=== PATIENT | female | born 1950 | race Caucasian/White ===

== ENCOUNTER 2024-07-08 12:29 | Emergency (ER) | payer MEDICARE, MEDICAID ==
[2024-07-08] VITALS (10 sets, daily range): BP systolic 93–118; BP diastolic 51–93
[~2024-07-08] VITALS: Ht 162.6 cm; Wt 68.0 kg
[2024-07-08 13:07] LABS: BASO% 0.8 % (0-3); EOS% 3.4 % (0-8); HEMATOCRIT 37.3 % (39.0-50.0); HEMOGLOBIN 11.8 g/dl (14.0-18.0); IMMATURE GRANULOCYTES 0.2 % (0.0-5.0); LYMPH% 32.7 % (15-41); MEAN CELL VOLUME 93.7 fL CALC (80.0-100.0); MEAN CORPUSCULAR HGB 29.6 pG CALC (26.0-32.0); MEAN CORPUSCULAR HGB CONC 31.6 g/dL CAL (32.0-36.0); MONO% 8.5 % (2-13); NEUT# 5.75 thou/uL (1.82-7.42); NEUT% 54.4 % (42-76); RED BLOOD COUNT 3.98 mill/uL (4.70-6.10); RED CELL DISTRI WIDTH 13.1 % (11.5-15.5)
[2024-07-08 13:22] LABS: ALBUMIN 4.2 g/dL (3.2-5.0); BILIRUBIN, TOTAL 0.6 mg/dL (0.2-1.3); CREATININE 0.9 mg/dL (0.7-1.3); MAGNESIUM 2.2 mg/dL (1.6-2.3); POTASSIUM 4.6 mmol/l (3.5-5.1); TOTAL PROTEIN 7.1 g/dL (6.3-8.2)
[2024-07-08 13:46] LABS: URINE BILIRUBIN - DIPSTICK Negative (NEGATIVE); URINE BLOOD DIPSTICK Negative (NEGATIVE); URINE GLUCOSE - DIPSTICK Negative (NEGATIVE); URINE KETONE Trace mg/dL (NEGATIVE); URINE LEUK ESTERASE Negative (NEGATIVE); URINE PROTEIN - DIPSTICK Negative (NEG-TRACE)
[2024-07-08 13:48] LABS: URINE COLOR Yellow; URINE NITRITE - DIPSTICK Positive (Negative)
[2024-07-08 13:57] LABS: URINE BACTERIA MODERATE hpf; URINE RBC 0-2 RBC/hpf (0-5)
[2024-07-08 13:58] LABS: URINE MUCUS MODERATE hpf (NONE-FEW); URINE SQUAMOUS EPITHELIAL CELL FEW EPI/hpf (0-FEW)
[2024-07-08 13:59] LABS: URINE HYALINE CAST MODERATE lpf (NONE-RARE)
[2024-07-08] MEDS ORDERED: KEFLEX500 MG PO ×2 (14:37→14:46)
[2024-07-08] MEDS ORDERED: SODIUM CHLORIDE 0.9% 1,000 ML IV ONE (14:45)
[2024-07-08] MEDS ORDERED: MIRALAX17 GM PO (14:46)
== END 2024-07-08 16:19 | disposition home or self-care (01) ==
LOC: ED 12:29 → EDSEX 12:29 → ED 14:00
PROVIDERS: Nurse Practitioner
DX: N39.0 Urinary tract infection, site not specified (principal); R42 Dizziness and giddiness; I10 Essential (primary) hypertension; E78.00 Pure hypercholesterolemia, unspecified

== ENCOUNTER 2024-08-06 13:14 | Inpatient (IN) | payer MEDICARE, MEDICAID ==
[2024-08-06] VITALS (12 sets, daily range): BP systolic 100–143; BP diastolic 56–82
[~2024-08-06] VITALS: Ht 162.6 cm; Wt 68.0 kg
[~2024-08-06 13:14] MED LIST: KEFLEX500 MG PO; MIRALAX17 GM PO
[2024-08-06] MEDS ORDERED: SODIUM CHLORIDE 0.9% 1,000 ML IV STA (14:22)
[2024-08-06] MEDS ORDERED: DIATRIZOATE MEGLUMINE & SODIUM 120 ML/BTL BTL PO ONE (14:25)
[2024-08-06 14:39] LABS: URINE BILIRUBIN - DIPSTICK Negative (NEGATIVE); URINE GLUCOSE - DIPSTICK Negative (NEGATIVE); URINE KETONE Negative (NEGATIVE); URINE LEUK ESTERASE Negative (NEGATIVE); URINE PH 5.5 (4.5-8.0); URINE PROTEIN - DIPSTICK Negative (NEG-TRACE); URINE UROBILINOGEN - DIPSTICK 0.2 E.U./dL (0.2)
[2024-08-06 14:42] LABS: BASO% 0.9 % (0-3); EOS% 1.7 % (0-8); HEMATOCRIT 36.3 % (37.0-47.0); HEMOGLOBIN 11.7 g/dl (12.0-16.0); IMMATURE GRANULOCYTES 0.1 % (0.0-5.0); LYMPH% 33.9 % (15-41); MEAN CELL VOLUME 93.1 fL CALC (80.0-100.0); MEAN CORPUSCULAR HGB CONC 32.2 g/dL CAL (32.0-36.0); MONO% 9.3 % (2-13); NEUT# 5.56 thou/uL (2.00-7.15); NEUT% 54.1 % (42-76); RED BLOOD COUNT 3.9 mill/uL (4.20-5.60); RED CELL DISTRI WIDTH 13.2 % (11.5-15.5)
[2024-08-06 14:52] LABS: URINE COLOR Yellow; URINE NITRITE - DIPSTICK Positive (Negative)
[2024-08-06 14:53] LABS: ALBUMIN 4.4 g/dL (3.2-5.0); BILIRUBIN, TOTAL 0.6 mg/dL (0.02-1.3); CREATININE 0.8 mg/dL (0.5-1.0); POTASSIUM 4.8 mmol/l (3.5-5.1); TOTAL PROTEIN 7.1 g/dL (6.3-8.2)
[2024-08-06] MEDS ORDERED: ISOVUE-300 (Iopamidol) 100 ML SDV IV PRN (14:55)
[2024-08-06] MEDS ORDERED: Barium Sulfate (Readi-Cat 2 Berry) 450 ML/BTL PO PRN (14:55)
[2024-08-06] MEDS ORDERED: DIATRIZOATE MEGLUMINE & SODIUM 30 ML/BTL PO PRN (14:55)
[2024-08-06] MEDS ORDERED: Barium Sulfate (Readi-Cat 2 Banana) 450 ML/BTL PO PRN (14:55)
[2024-08-06 15:00] LABS: URINE BACTERIA FEW hpf; URINE BLOOD DIPSTICK Negative (NEGATIVE); URINE EPITHELIAL CELLS RARE EPI/hpf (0-FEW); URINE RBC 0-2 RBC/hpf (0-5)
[2024-08-06] MEDS ORDERED: DIATRIZOATE MEGLUMINE & SODIUM 30 ML/BTL PO ONE (15:10)
[2024-08-06] MEDS ORDERED: Peg 3350-POTASSIUM CHLORIDE-So 4,000 ML BTL PO ONE (19:15)
[2024-08-06] MEDS ORDERED: SYMBICORT 80-4.5MCG PO (19:38)
[2024-08-06] MEDS ORDERED: TIZANIDINE4 MG PO (19:39)
[2024-08-06] MEDS ORDERED: ROSUVASTATIN CAL5 MG PO (19:39)
[2024-08-06] MEDS ORDERED: BUSPAR10 M1 PO (19:40)
[2024-08-06] MEDS ORDERED: LISINOPRIL30 MG PO (19:40)
[2024-08-06] MEDS ORDERED: ESCITALOPRAM OX20 MG PO (19:40)
[2024-08-06] MEDS ORDERED: QUETIAPINE FUM150 MG PO (19:41)
[2024-08-06] MEDS ORDERED: MONTELUKAST SOD10 MG PO (19:41)
[2024-08-06] MEDS ORDERED: SODIUM CHLORIDE 0.9% 1,000 ML IV PRN (20:40)
[2024-08-06] MEDS ORDERED: busPIRone HCL 5 MG/TAB PO SCH (22:24)
[2024-08-06] MEDS ORDERED: MAGNESIUM HYDROXIDE 30 ML UDC PO PRN (22:25)
[2024-08-06] MEDS ORDERED: Polyethylene Glycol 3350 17 GM/PKT PO PRN (22:25)
[2024-08-06] MEDS ORDERED: ACETAMINOPHEN 325 MG/TAB PO PRN (22:25)
[2024-08-07 04:00] VITALS: BP 143/79
[2024-08-07 04:12] VITALS: BP 143/79
[2024-08-07 07:29] VITALS: BP 116/66
[2024-08-07 08:29] LABS: ALBUMIN 4.2 g/dL (3.2-5.0); BILIRUBIN, TOTAL 0.6 mg/dL (0.02-1.3); CREATININE 0.7 mg/dL (0.5-1.0); MAGNESIUM 2.1 mg/dL (1.6-2.3); POTASSIUM 4.5 mmol/l (3.5-5.1); TOTAL PROTEIN 6.8 g/dL (6.3-8.2)
[2024-08-07 08:31] LABS: BASO% 0.8 % (0-3); EOS% 2.8 % (0-8); HEMATOCRIT 38.2 % (37.0-47.0); HEMOGLOBIN 12.2 g/dl (12.0-16.0); IMMATURE GRANULOCYTES 0.2 % (0.0-5.0); LYMPH% 29.4 % (15-41); MEAN CELL VOLUME 94.1 fL CALC (80.0-100.0); MEAN CORPUSCULAR HGB CONC 31.9 g/dL CAL (32.0-36.0); MONO% 9.1 % (2-13); NEUT% 57.7 % (42-76); RED BLOOD COUNT 4.06 mill/uL (4.20-5.60); RED CELL DISTRI WIDTH 13.2 % (11.5-15.5)
[2024-08-07] MEDS ORDERED: ESCITALOPRAM 10 MG/TAB PO SCH (09:00)
[2024-08-07] MEDS ORDERED: LISINOPRIL 10 MG/TAB PO SCH (09:00)
[2024-08-07] MEDS ORDERED: IBUPROFEN 600 MG/TAB PO PRN (11:30)
[2024-08-07] MEDS ORDERED: DOCUSATE SODIUM 100 MG/CAP PO SCH (12:00)
[2024-08-07 15:44] VITALS: BP 116/60
[2024-08-07 18:29] VITALS: BP 125/69
[2024-08-07 18:30] VITALS: BP 125/69
[2024-08-07] MEDS ORDERED: QUEtiapine FUMERATE 100 MG/TAB PO SCH (21:00)
[2024-08-07] MEDS ORDERED: ENOXAPARIN SODIUM 40 MG/0.4 ML SYR SC SCH (21:00)
[2024-08-08 04:00] VITALS: BP 125/63
[2024-08-08 04:40] VITALS: BP 125/63
[2024-08-08 05:14] LABS: BASO% 0.8 % (0-3); EOS% 4.2 % (0-8); HEMOGLOBIN 10.3 g/dl (12.0-16.0); IMMATURE GRANULOCYTES 0.1 % (0.0-5.0); MEAN CELL VOLUME 94.6 fL CALC (80.0-100.0); MEAN CORPUSCULAR HGB 30.7 pG CALC (26.0-32.0); MEAN CORPUSCULAR HGB CONC 32.5 g/dL CAL (32.0-36.0); MONO% 9.8 % (2-13); NEUT# 2.74 thou/uL (2.00-7.15); NEUT% 35.1 % (42-76); RED BLOOD COUNT 3.35 mill/uL (4.20-5.60)
[2024-08-08 05:24] LABS: HEMATOCRIT 31.7 % (37.0-47.0)
[2024-08-08 05:25] LABS: BILIRUBIN, TOTAL 0.5 mg/dL (0.02-1.3); CREATININE 0.7 mg/dL (0.5-1.0); MAGNESIUM 1.9 mg/dL (1.6-2.3); POTASSIUM 4.1 mmol/l (3.5-5.1)
[2024-08-08 05:39] LABS: TOTAL PROTEIN 5.4 g/dL (6.3-8.2)
[2024-08-08 07:50] VITALS: BP 137/73
[2024-08-08 08:28] VITALS: BP 137/73
[2024-08-08] MEDS ORDERED: DOCUSATE SODIU100 MG PO (09:52)
[2024-08-08] MEDS ORDERED: BACTRIM DS1 TAB PO (09:52)
== END 2024-08-08 13:50 | disposition home or self-care (01) | DRG 389 ==
LOC: ED 13:14 → MS2 19:13
PROVIDERS: Nurse Practitioner; Nurse Practitioner Family; ADMIT Internal Medicine; ATTEND Internal Medicine
DX: K56.7 Ileus, unspecified (principal); N39.0 Urinary tract infection, site not specified; B96.20 Unspecified Escherichia coli [E. coli] as the cause of diseases classified elsewhere; K80.20 Calculus of gallbladder without cholecystitis without obstruction; I10 Essential (primary) hypertension; E78.00 Pure hypercholesterolemia, unspecified; J44.9 Chronic obstructive pulmonary disease, unspecified; F41.9 Anxiety disorder, unspecified
CPT/HCPCS: J0696; J1650; Q9967

== ENCOUNTER 2024-08-15 09:18 | Observation (INO) | payer MEDICARE, MEDICAID ==
[~2024-08-15] VITALS: Ht 162.6 cm; Wt 79.5 kg
[2024-08-15] VITALS (9 sets, daily range): BP systolic 95–126; BP diastolic 41–65
[~2024-08-15 09:18] MED LIST changes: +BACTRIM DS1 TAB PO; +BUSPAR10 M1 PO; +DOCUSATE SODIU100 MG PO; +ESCITALOPRAM OX20 MG PO; +LISINOPRIL30 MG PO; +MONTELUKAST SOD10 MG PO; +QUETIAPINE FUM150 MG PO; +ROSUVASTATIN CAL5 MG PO; +SYMBICORT 80-4.5MCG PO; +TIZANIDINE4 MG PO
--- NOTE | 2024-08-15 09:20 | NUR ---
PT BROUGHT BACK TO ER ROOM 9 VIA WHEELCHAIR
[2024-08-15] MEDS ORDERED: KETOROLAC TROMETHAMINE 15 MG/ML SDV IV ONE (10:00)
[2024-08-15 10:15] LABS: URINE BLOOD DIPSTICK Negative (NEGATIVE); URINE COLOR Yellow; URINE GLUCOSE - DIPSTICK Negative (NEGATIVE); URINE KETONE Negative (NEGATIVE); URINE LEUK ESTERASE Negative (NEGATIVE); URINE NITRITE - DIPSTICK Negative (Negative); URINE PROTEIN - DIPSTICK Trace mg/dL (NEG-TRACE); URINE UROBILINOGEN - DIPSTICK 0.2 E.U./dL (0.2)
[2024-08-15 10:15] LABS: BASO% 0.3 % (0-3); EOS% 0.2 % (0-8); IMMATURE GRANULOCYTES 0.2 % (0.0-5.0); LYMPH% 11.5 % (15-41); MEAN CELL VOLUME 90.8 fL CALC (80.0-100.0); MEAN CORPUSCULAR HGB 29.8 pG CALC (26.0-32.0); MEAN CORPUSCULAR HGB CONC 32.8 g/dL CAL (32.0-36.0); MONO% 8.3 % (2-13); NEUT# 7.01 thou/uL (2.00-7.15); NEUT% 79.5 % (42-76); RED BLOOD COUNT 4.26 mill/uL (4.20-5.60); RED CELL DISTRI WIDTH 13.2 % (11.5-15.5)
[2024-08-15 10:21] LABS: HEMATOCRIT 38.7 % (37.0-47.0); HEMOGLOBIN 12.7 g/dl (12.0-16.0)
[2024-08-15 10:31] LABS: BILIRUBIN, TOTAL 0.5 mg/dL (0.02-1.3); CREATININE 0.9 mg/dL (0.5-1.0); POTASSIUM 4.9 mmol/l (3.5-5.1)
[2024-08-15 10:33] LABS: ALBUMIN 4.2 g/dL (3.2-5.0); TOTAL PROTEIN 7.1 g/dL (6.3-8.2)
[2024-08-15] MEDS ORDERED: ePHEDrine SULFATE 50 MG/ML AMP IV ONE (11:29)
[2024-08-15] MEDS ORDERED: ONDANSETRON HCl 4 MG/2 ML SDV IV ONE (11:29)
[2024-08-15] MEDS ORDERED: PROPOFOL 200 MG/20 ML VIAL IV ONE (11:29)
[2024-08-15] MEDS ORDERED: LIDOCAINE HCL 2% 2ML SDV IV ONE (11:29)
[2024-08-15] MEDS ORDERED: ROCURONIUM BROMIDE 10 MG/ML 5ML VIAL IV ONE (11:29)
[2024-08-15] MEDS ORDERED: SUGAMMADEX SODIUM 200 MG/2 ML SDV IV ONE (11:29)
[2024-08-15] MEDS ORDERED: SUCCINYLCHOLINE CHLORIDE 20 MG/ML 10ML VIAL IV ONE (11:29)
[2024-08-15] MEDS ORDERED: cefTRIAXone SODIUM 2 GM in SODIUM CHLORIDE 0.9% 100 ML IV ONE (11:35)
[2024-08-15] MEDS ORDERED: AZITHROMYCIN 500 MG in SODIUM CHLORIDE 0.9% 500 ML IV ONE (11:35)
[2024-08-15] MEDS ORDERED: PIPERACILLIN Sodium-Tazobactam 3.375 GM in SODIUM CHLORIDE 0.9% 100 ML IV ONE (11:35)
[2024-08-15] MEDS ORDERED: SODIUM CHLORIDE 0.9% 500 ML IV ONE (12:03)
[2024-08-15] MEDS ORDERED: SODIUM CHLORIDE 1,000 ML BTL IR ONE (12:09)
[2024-08-15] MEDS ORDERED: STERILE WATER FOR IRRIGATION 1,000 ML BTL IR ONE (12:09)
[2024-08-15] MEDS ORDERED: LIDOcaine HCl 1% (Local Anesth.) 20 ML VIAL ONE (12:09)
--- NOTE | 2024-08-15 12:20 | NUR ---
Dr. Mcnair at patient's bedside to discuss plan of care.
--- NOTE | 2024-08-15 12:31 | NUR ---
zosyn and Rocephin IV infusing. Azithromycin ordered but not initiated as patient has peripheral IV sites x2. Handoff administered to Simona, WEB APPLICATIONS ADMINISTRATOR. Patient transported to OR via stretcher.
[2024-08-15] MEDS ORDERED: FAMOTIDINE 10MG/ML 2ML SDV IV ONE (12:47)
[2024-08-15] MEDS ORDERED: LACTATED RINGER'S 1,000 ML IV ONE ×2 (13:09→14:25)
[2024-08-15] MEDS ORDERED: SIMETHICONE 20 MG/0.3 ML PO PRN (13:55)
[2024-08-15] MEDS ORDERED: oxyCODONE 5MG/ ACETAMINOPHEN 325MG TAB PO PRN (13:55)
[2024-08-15] MEDS ORDERED: SODIUM CHLORIDE 0.9% 1,000 ML IV PRN (13:55)
[2024-08-15] MEDS ORDERED: HYDROmorphone HCL 2 MG/AMP IV PRN (13:55)
[2024-08-15] MEDS ORDERED: ONDANSETRON HCl 4 MG/2 ML SDV IV PRN (13:55)
[2024-08-15] MEDS ORDERED: ACETAMINOPHEN 100 ML IV ONE (14:16)
[2024-08-15] MEDS ORDERED: ALBUTEROL SULFATE 2.5 MG VIAL ONE (14:16)
[2024-08-15] MEDS ORDERED: PROMETHAZINE HCL 12.5 MG in SODIUM CHLORIDE 0.9% 50 ML IV PRN (14:45)
[2024-08-15] MEDS ORDERED: busPIRone HCL 5 MG/TAB PO SCH (15:00)
[2024-08-15] MEDS ORDERED: (None)1 % OP (15:34)
[2024-08-15] MEDS ORDERED: AIMOVIG140 MG/ML (15:35)
--- NOTE | 2024-08-15 16:42 | NUR ---
Pt consented to receive pneumococcal vaccination, however [facility] record shows administration of PCV20 in October 2021. Re-vaccination not recommended. No order entered.
[2024-08-15] MEDS ORDERED: KETOROLAC TROMETHAMINE 15 MG/ML SDV IV SCH (18:00)
[2024-08-15] MEDS ORDERED: PIPERACILLIN Sodium-Tazobactam 3.375 GM in SODIUM CHLORIDE 0.9% 100 ML IV SCH (18:00)
--- NOTE | 2024-08-15 19:35 | NUR ---
PATIENT OBSERVED TO BE RESTING IN BED WATCHING TV. PATIENT CAN MAKE THINGS KNOWN, NONE NEEDED AT THIS TIME. O2 VIA NC AT 2L, WITH EQUAL UNLABORED RESP, NO VISUAL SIGNS OF DISTRESS. ABDOMEN OBSERVED TO HAVE 4 INCISION SITES, INTACT NO DRAINAGE. BED AT LOWEST POSITION. CALL LIGHT WITH IN REACH.
[2024-08-15] MEDS ORDERED: MAGNESIUM CITRATE 296 ML/BTL PO SCH (21:00)
--- NOTE | 2024-08-16 01:30 | NUR ---
PATIENT OBSERVED TO BE RESTING IN BED AWAKE. PATIENT CAN MAKE NEEDS KNOWN NONE NEEDED AT THIS TIME. UNLABORED RESP WITH O2 VIA NC AT 3L. BED AT LOWEST POSITION. CALL LIGHT WITH IN REACH.
[2024-08-16 04:00] VITALS: BP 115/62
--- NOTE | 2024-08-16 04:20 | NUR ---
PATIENT OBSERVED TO BE RESTING IN BED WITH EYES CLOSED. O2 VIA NC AT 3L. UNLABORED RESP. NO VISUAL SIGNS OF DISTRESS. BED AT LOWEST POSITION. CALL LIGHT WITH IN REACH.
[2024-08-16 05:03] LABS: BASO% 0.3 % (0-3); EOS% 0.2 % (0-8); HEMATOCRIT 33.3 % (37.0-47.0); HEMOGLOBIN 10.8 g/dl (12.0-16.0); IMMATURE GRANULOCYTES 0.2 % (0.0-5.0); LYMPH% 14.7 % (15-41); MEAN CELL VOLUME 92.2 fL CALC (80.0-100.0); MEAN CORPUSCULAR HGB 29.9 pG CALC (26.0-32.0); MEAN CORPUSCULAR HGB CONC 32.4 g/dL CAL (32.0-36.0); MONO% 10.1 % (2-13); NEUT# 6.83 thou/uL (2.00-7.15); NEUT% 74.5 % (42-76); RED BLOOD COUNT 3.61 mill/uL (4.20-5.60); RED CELL DISTRI WIDTH 13.5 % (11.5-15.5)
[2024-08-16 05:15] LABS: BILIRUBIN, TOTAL 0.4 mg/dL (0.02-1.3); CREATININE 0.8 mg/dL (0.5-1.0); POTASSIUM 4.9 mmol/l (3.5-5.1); TOTAL PROTEIN 5.9 g/dL (6.3-8.2)
[2024-08-16 05:17] LABS: ALBUMIN 3.3 g/dL (3.2-5.0)
[2024-08-16 07:02] VITALS: BP 99/73
[2024-08-16] MEDS ORDERED: ESCITALOPRAM 10 MG/TAB PO SCH (09:00)
[2024-08-16] MEDS ORDERED: LISINOPRIL 10 MG/TAB PO SCH (09:00)
[2024-08-16] MEDS ORDERED: QUEtiapine FUMERATE 100 MG/TAB PO SCH (09:00)
[2024-08-16] MEDS ORDERED: MONTELUKAST SODIUM 10 MG/TAB PO SCH (09:00)
[2024-08-16] MEDS ORDERED: INFLUENZA VIRUS VACCINE FLUZONE HD 2024/25 0.5 ML INJ IM SCH (09:00)
[2024-08-16 11:10] VITALS: BP 119/69
[2024-08-16] MEDS ORDERED: SUMAtriptan SUCCINATE 25 MG TAB PO PRN (11:15)
[2024-08-16 15:38] VITALS: BP 96/51
[2024-08-16 18:30] VITALS: BP 102/61
[2024-08-16 18:56] VITALS: BP 102/61
--- NOTE | 2024-08-16 19:44 | NUR ---
PATIENT OBSERVED TO BE RESTING IN BED WATCHING TV. PATIENT CAN MAKE NEEDS KNOWN, NONE NEEDED AT THIS TIME. BED SIDE ASSESSMENT COMPLETE. O2 VIA NC AT 2L WITH EQUAL UNLABORED RESP. NO VISUAL SIGNS OF DISTRESS. NORMAL S1&S2. ABDOMEN OBSERVED TO BE SOFT AND DISTENDED. MIDLINE INCISION OBSERVED TO LOWER ABDOMEN. BED AT LOWEST POSITION. CALL LIGHT WITH IN REACH.
[2024-08-17] VITALS (9 sets, daily range): BP systolic 87–138; BP diastolic 38–80
--- NOTE | 2024-08-17 00:40 | NUR ---
PATIENT IN BED RESTING IN BED AWAKE. O2 VIA NC AT 3L. UNLABORED RESP. NO VISUAL SIGNS OF DISTRESS. PATIENT STATED SHE HAS A HEADACHE. WILL REFER TO EMAR. BED AT LOWEST POSITION. CALL LIGHT WITH IN REACH.
--- NOTE | 2024-08-17 04:56 | NUR ---
PATIENT IN BED RESTING WITH EYES CLOSED. O2 VIA NC AT 2L, UNLABORED RESP NO VISUAL SIGNS OF DISTRESS. BED AT LOWEST POSITION. CALL LIGHT WITH IN REACH.
--- NOTE | 2024-08-17 07:15 | NUR ---
REPORT RECEIVED FROM VALERIO. PT CHECKED AND RESTING IN BED C/O H/A. WILL MONITOR. IV PATENT AND TELE CHECKED SR/ST 98-104. WILL MONITOR. CALL LIGHT IN REACH.
[2024-08-17] MEDS ORDERED: PERCOCET 5/325M1 TAB PO (09:40)
[2024-08-17] MEDS ORDERED: AMOX/K CLAV875 M1 PO (09:41)
--- NOTE | 2024-08-17 11:00 | NUR ---
PT SITTING UP IN BEDSIDE RECLINER AWAITING DISCHARGE HOME. DR. FAULKNER AT BEDSIDE EARLIER TO ASSESS AND NOTIFIED OF LOWER MID ABD INCISION WITH DRAINAGE AND SMALL OPENING. HE REMOVED STERI STRIPS AND ASSESSED AND OKAY FOR DISCHARGE, HOWEVER, PT BP 90/[address] 102-[address] FAULKNER NOTIFIED AND MEDICAL MD DR AL WAS CONSULTED 08/15 BUT HAD NOT SEEN PATIENT YET. DR. LADD AVAILABLE TODAY AND INFORMED OF ASSESSMENT FINDINGS. PT DENIES SOB/DYSPNEA, HOWEVER ALSO FAILED WALKING TEST PER RT WITH PO2 DROPPING TO 87-88 % ON R/A. CASE MANAGEMENT AWARE AND ORDERING HOME HEALTH AND HOME O2. MEANWHILE LR STARTED TO GIVE PT BOLUS DOSE AND STAT LABS ORDERED. PT UPDATED ON POC AND AWARE OF TESTS NEEDED TO OK DISCHARGE HOME.
[2024-08-17 11:30] LABS: HEMATOCRIT 34.8 % (37.0-47.0); HEMOGLOBIN 11.3 g/dl (12.0-16.0); MEAN CELL VOLUME 91.6 fL CALC (80.0-100.0); MEAN CORPUSCULAR HGB 29.7 pG CALC (26.0-32.0); MEAN CORPUSCULAR HGB CONC 32.5 g/dL CAL (32.0-36.0); RED BLOOD COUNT 3.8 mill/uL (4.20-5.60); RED CELL DISTRI WIDTH 13.4 % (11.5-15.5)
[2024-08-17] MEDS ORDERED: LACTATED RINGER'S 1,000 ML IV SCH (11:30)
[2024-08-17 11:42] LABS: ALBUMIN 3.1 g/dL (3.2-5.0); BILIRUBIN, TOTAL 0.4 mg/dL (0.02-1.3); CREATININE 0.7 mg/dL (0.5-1.0); POTASSIUM 4.4 mmol/l (3.5-5.1); TOTAL PROTEIN 5.7 g/dL (6.3-8.2)
--- NOTE | 2024-08-17 13:51 | NUR ---
PT REMAINS RESTING IN CHAIR WITHOUT COMPLAINTS. INDICATED HER HEADACHE SUBSIDED AFTER TORADOL DOSE GIVEN. LAB TESTS COMPLETED AND BP REMAINS 90/47 WITH HR 96-105. FR. GALLEGOSAnat REMAINS ON UNIT AND UPDATED. WILL MONITOR. STAT CT A/P ORDERED.
[2024-08-17] MEDS ORDERED: DIATRIZOATE MEGLUMINE & SODIUM 30 ML/BTL PO SCH (14:30)
[2024-08-17] MEDS ORDERED: LACTATED RINGER'S 1,000 ML IV PRN (15:35)
--- NOTE | 2024-08-17 16:50 | NUR ---
PT TO CT SCAN AFTER DR LADD ASSESSED PT TO R/O BLEED D/T LOWER BP. LACTIC ACID 1.9. PT WITH C/O H/A AND MEDICATED. PT BACK SITTING IN BEDSIDE RECLINER WITH CALL LIGHT IN REACH. BP REMAINS LOWER. WILL MONITOR.
[2024-08-17] MEDS ORDERED: PIPERACILLIN Sodium-Tazobactam 3.375 GM in SODIUM CHLORIDE 0.9% 100 ML IV SCH (18:00)
--- NOTE | 2024-08-17 18:00 | NUR ---
LEFT FA IV LEAKING AND D/C;D WITH CATH TIP INTACT. # 20 G RESTARTED TO RIGHT AC AREA X 1. PT BANDAR WELL. IVF LR AT 100MKL/HR. PT INDICATED OXYCODONE HELPING HER H/A. NO C/O PAIN TO ABDOMEN. [id number] RESULTS OF CT SCAN. DR. LADD CALLED WITH UPDATE ON PT ASSESSMENT. BP HOLDING AND LACTIC ACID 1.9. IVF WITH LR CONTINUEE AT 100ML/HR. DR FAULKNER UPDATED AND DISCHARGE ON HOLD FOR OVERNIGHT. WILL CONTINUE TO MONITOR.
[2024-08-18 00:06] VITALS: BP 110/69
[2024-08-18 03:26] VITALS: BP 119/70
[2024-08-18 05:12] LABS: BASO% 0.5 % (0-3); EOS% 2.7 % (0-8); HEMATOCRIT 32.6 % (37.0-47.0); HEMOGLOBIN 10.5 g/dl (12.0-16.0); IMMATURE GRANULOCYTES 0.1 % (0.0-5.0); LYMPH% 29.7 % (15-41); MEAN CELL VOLUME 95.6 fL CALC (80.0-100.0); MEAN CORPUSCULAR HGB 30.8 pG CALC (26.0-32.0); MEAN CORPUSCULAR HGB CONC 32.2 g/dL CAL (32.0-36.0); NEUT# 4.47 thou/uL (2.00-7.15); RED BLOOD COUNT 3.41 mill/uL (4.20-5.60); RED CELL DISTRI WIDTH 13.3 % (11.5-15.5)
[2024-08-18 05:32] LABS: ALBUMIN 2.9 g/dL (3.2-5.0); BILIRUBIN, TOTAL 0.4 mg/dL (0.02-1.3); CREATININE 0.6 mg/dL (0.5-1.0); POTASSIUM 3.9 mmol/l (3.5-5.1); TOTAL PROTEIN 5.3 g/dL (6.3-8.2)
--- NOTE | 2024-08-18 06:43 | NUR ---
Patient alert and oriented, on 2 LNC, no complains of SOB sating at 93 % oxy was given for a headache, BP stable.
--- NOTE | 2024-08-18 07:00 | NUR ---
REPORT RECEIVED FROM DEDRA. PT CHECKED RESTING IN BED QUIETLY WITH RESP AT EASE. C/O HEADACHE WHICH HAS BEEN CONTINUAL. DENIES SOB/DYSPNEA. TELE CHECKED ABD [id number]. IVF PATENT AND WILL CONTINUE TO MONITOR. ICE PACK GIVEN.
[2024-08-18 07:05] VITALS: BP 112/69
[2024-08-18 07:44] VITALS: BP 112/69
[2024-08-18] MEDS ORDERED: POTASSIUM CHLORIDE 20MEQ 100 ML IV SCH (09:00)
--- NOTE | 2024-08-18 10:17 | NUR ---
dr. vaz at bedside and evaluated pt. pt sitting up in recliner chair without complaints. pt wishes to go home but will need cxr to follow up on pneumonia. will continue to monitor.
[2024-08-18 11:16] VITALS: BP 104/53
[2024-08-18] MEDS ORDERED: PIPERACILLIN Sodium-Tazobactam 3.375 GM in SODIUM CHLORIDE 0.9% 100 ML IV SCH (12:00)
--- NOTE | 2024-08-18 12:00 | NUR ---
PT TO XR TO FOLLOW UP RE: PNA. WILL MONITOR. POTENTIAL D/C HOME. P.T. ORDERED TO EVAL FOR HOME SAFETY. PORTABLE O2 UNIT ALSO DELIVERED BY CASE MANAGEMENT. PAIN MANAGED WITH ORDERED OXYCODONE. PT UP IN RECLINER AND ASSISTED TO BED TO REST. WILL MONITOR.
[2024-08-18] MEDS ORDERED: LEVOFLOXACIN500MG PO (14:51)
--- NOTE | 2024-08-18 15:19 | NUR ---
PT APPROVED FOR D/C HOME. PRINTED DISCHARGE INSTRUCTIONS REVIEWED AND INSTRUCTED TO GET RX FROM [facility]. PT INDICATED [facility] WILL DELIVER TOMORROW. PT TO STAY FOR LAST ABX DOSE PRIOR TO GOING HOME. R.T. TO INSTRUCT ON HOME O2 PRIOR TO D/C HOME. PRINTED MATERIAL GIVEN WELL. [id number] HH TO FOLLOW. WILL CONTINUE TO MONITOR. PT SCHEDULED FOR D/C TIME 1730.
[2024-08-18 15:51] VITALS: BP 102/60
--- NOTE | 2024-08-18 17:38 | NUR ---
Discharge instructions given. Patient verbalizes understanding of same. Discharged in stable condition via Wheelchair to Home with staff. All belongings sent with pt. PT WAS D/C'D VIA W/C TO [facility] HOME. IV AND TELE REMOVED. LOANER O2 CONCENTRATOR SET UP. PT WITHOUT COMPLAINTS.
== END 2024-08-18 17:13 | disposition home health service (06) ==
LOC: ED 09:18 → ORM 11:39 → ED 12:40 → MS2 14:55
PROVIDERS: Family Medicine; Internal Medicine; ADMIT Surgery; ATTEND Surgery
PROC: 0FT44ZZ Resection of Gallbladder, Percutaneous Endoscopic Approach (ICD-10-PCS; principal; 2024-08-15)
DX: K80.12 Calculus of gallbladder with acute and chronic cholecystitis without obstruction (principal); K82.1 Hydrops of gallbladder; J18.9 Pneumonia, unspecified organism; I95.9 Hypotension, unspecified; G43.909 Migraine, unspecified, not intractable, without status migrainosus; I10 Essential (primary) hypertension; E78.00 Pure hypercholesterolemia, unspecified; F41.9 Anxiety disorder, unspecified; F32.A Depression, unspecified; Z20.822 Contact with and (suspected) exposure to COVID-19
CPT/HCPCS: 90662; J0131; J0456; J0696; J1171; J1885; J2405; J2543; J3480; Q9967

== ENCOUNTER 2024-08-27 12:24 | Observation (INO) | payer MEDICARE, MEDICAID ==
[2024-08-27] VITALS (17 sets, daily range): BP systolic 84–118; BP diastolic 45–73
[~2024-08-27] VITALS: Ht 167.6 cm; Wt 68.0 kg
[~2024-08-27 12:24] MED LIST changes: +(None)1 % OP; +AIMOVIG140 MG/ML; +AMOX/K CLAV875 M1 PO; +LEVOFLOXACIN500MG PO; +PERCOCET 5/325M1 TAB PO
[2024-08-27] MEDS ORDERED: SODIUM CHLORIDE 0.9% 1,000 ML IV ONE ×2 (12:53→14:20)
[2024-08-27 12:57] LABS: BASO% 0.5 % (0-3); EOS% 2.8 % (0-8); HEMATOCRIT 37.7 % (37.0-47.0); HEMOGLOBIN 11.8 g/dl (12.0-16.0); IMMATURE GRANULOCYTES 0.2 % (0.0-5.0); LYMPH% 29.4 % (15-41); MEAN CORPUSCULAR HGB 29.4 pG CALC (26.0-32.0); MEAN CORPUSCULAR HGB CONC 31.3 g/dL CAL (32.0-36.0); MONO% 10.4 % (2-13); NEUT# 9.34 thou/uL (2.00-7.15); NEUT% 56.7 % (42-76); RED BLOOD COUNT 4.01 mill/uL (4.20-5.60)
[2024-08-27 13:13] LABS: ALKALINE PHOSPHATASE 239 u/l (38-126); ANION GAP 10 (6-22 (CALC)); BUN 22 mg/dL (8-23); BUN/CREATININE RATIO 20 (12-20 (CALC)); CALCULATED LDLCHOLESTEROL 59 mg/dL (62-129 (CALC)); CARBON DIOXIDE 28 mmol/l (22-30); CHLORIDE 100 mmol/l (95-108); CHOLESTEROL HDL RATIO 2.4 (<4.4 (CALC)); CREATININE 1.1 mg/dL (0.5-1.0); ESTIMATED GFR 53 ML/MIN (>=90 (CALC)); HDL CHOLESTEROL 52 mg/dL (39.0-59.0); POTASSIUM 4.3 mmol/l (3.5-5.1); SGOT/AST 37 u/l (9-36); SODIUM 134 mmol/l (137-146); TOTAL CHOLESTEROL 125 mg/dl (0-199); TOTAL TRIGLYCERIDES 76 mg/dl (0-149); VLDL CHOLESTROL 15 mg/dl (0-48 (CALC))
[2024-08-27 13:19] LABS: ALBUMIN 3.9 g/dL (3.2-5.0); BILIRUBIN, TOTAL 0.6 mg/dL (0.02-1.3); TOTAL PROTEIN 6.9 g/dL (6.3-8.2)
[2024-08-27 13:51] LABS: PROTHROMBIN TIME 10.8 SECONDS (9.0-12.5)
[2024-08-27] MEDS ORDERED: PIPERACILLIN Sodium-Tazobactam 4.5 GM in SODIUM CHLORIDE 0.9% 100 ML IV ONE (14:15)
[2024-08-27] MEDS ORDERED: ASPIRIN 81 MG/TAB PO ONE (15:40)
[2024-08-27] MEDS ORDERED: MAGNESIUM HYDROXIDE 30 ML UDC PO PRN (16:40)
[2024-08-27] MEDS ORDERED: ACETAMINOPHEN 325 MG/TAB PO PRN (16:40)
[2024-08-27] MEDS ORDERED: SODIUM CHLORIDE 0.9% 1,000 ML IV PRN (16:40)
[2024-08-27] MEDS ORDERED: ASPIRIN 81 MG/TAB PO SCH (20:45)
[2024-08-27] MEDS ORDERED: DOCUSATE SODIUM 100 MG/CAP PO SCH (21:00)
[2024-08-27] MEDS ORDERED: ENOXAPARIN SODIUM 40 MG/0.4 ML SYR SC SCH (21:00)
[2024-08-27] MEDS ORDERED: busPIRone HCL 5 MG/TAB PO SCH (21:00)
[2024-08-28] VITALS: BP 122/62
[2024-08-28 01:08] VITALS: BP 122/62
[2024-08-28 04:00] VITALS: BP 117/65
[2024-08-28 06:00] LABS: URINE BILIRUBIN - DIPSTICK Negative (NEGATIVE); URINE BLOOD DIPSTICK Negative (NEGATIVE); URINE GLUCOSE - DIPSTICK Negative (NEGATIVE); URINE KETONE Negative (NEGATIVE); URINE LEUK ESTERASE Negative (NEGATIVE); URINE NITRITE - DIPSTICK Negative (Negative); URINE PROTEIN - DIPSTICK Negative (NEG-TRACE); URINE SPECIFIC GRAVITY 1.015; URINE UROBILINOGEN - DIPSTICK 0.2 E.U./dL (0.2)
[2024-08-28 06:01] LABS: URINE COLOR Yellow
[2024-08-28 06:13] LABS: HEMATOCRIT 33.7 % (37.0-47.0); HEMOGLOBIN 10.7 g/dl (12.0-16.0); IMMATURE GRANULOCYTES 0.3 % (0.0-5.0); MEAN CELL VOLUME 95.2 fL CALC (80.0-100.0); MEAN CORPUSCULAR HGB 30.2 pG CALC (26.0-32.0); MEAN CORPUSCULAR HGB CONC 31.8 g/dL CAL (32.0-36.0); MONO% 12.4 % (2-13); NEUT# 4.71 thou/uL (2.00-7.15); NEUT% 46.3 % (42-76); RED BLOOD COUNT 3.54 mill/uL (4.20-5.60); RED CELL DISTRI WIDTH 13.1 % (11.5-15.5)
[2024-08-28 06:14] LABS: ALBUMIN 3.2 g/dL (3.2-5.0); BILIRUBIN, TOTAL 0.6 mg/dL (0.02-1.3); CREATININE 0.6 mg/dL (0.5-1.0); MAGNESIUM 2.2 mg/dL (1.6-2.3); POTASSIUM 4.6 mmol/l (3.5-5.1); TOTAL PROTEIN 5.9 g/dL (6.3-8.2)
[2024-08-28 06:44] VITALS: BP 113/62
[2024-08-28] MEDS ORDERED: QUEtiapine FUMERATE 100 MG/TAB PO SCH (09:00)
[2024-08-28] MEDS ORDERED: MONTELUKAST SODIUM 10 MG/TAB PO SCH (09:00)
[2024-08-28] MEDS ORDERED: ASPIRIN EC 81 MG/TAB PO SCH (09:00)
[2024-08-28] MEDS ORDERED: ESCITALOPRAM 10 MG/TAB PO SCH (09:00)
[2024-08-28 11:01] VITALS: BP 131/65
[2024-08-28 15:23] VITALS: BP 138/69
[2024-08-29] MEDS ORDERED: INFLUENZA VIRUS VACCINE FLUZONE HD 2024/25 0.5 ML INJ IM SCH (09:00)
== END 2024-08-28 16:55 | disposition home health service (06) ==
LOC: ED 12:24 → ED-I 15:31 → ED 15:53 → ED-I 15:54 → MS2 15:54
PROVIDERS: Emergency Medicine; Nurse Practitioner Family; ADMIT Internal Medicine; ATTEND Internal Medicine
DX: I95.2 Hypotension due to drugs (principal); T46.4X5A Adverse effect of angiotensin-converting-enzyme inhibitors, initial encounter; R29.810 Facial weakness; I10 Essential (primary) hypertension; J96.11 Chronic respiratory failure with hypoxia; J44.9 Chronic obstructive pulmonary disease, unspecified; E78.00 Pure hypercholesterolemia, unspecified; F41.9 Anxiety disorder, unspecified; J32.0 Chronic maxillary sinusitis; Z99.81 Dependence on supplemental oxygen; Z90.49 Acquired absence of other specified parts of digestive tract
CPT/HCPCS: 90662; J1650; J2543; Q9967